=== PATIENT | female | born 1995 | race Caucasian/White ===

== ENCOUNTER → 2017-11-09 | Outpatient (CLI) | payer OTHER ==
--- NOTE | 2017-11-09 14:46 | RADIOLOGY IMAGING REPORT ---
[place] [facility] [place]IENT NAME: Prudence Logan : 1995 MR: [id number] V: [id number] EXAM DATE: ORDERING PHYSICIAN: ABHILASH DODD TECHNOLOGIST: [place] [facility] [place]: Prudence Logan : 1995 Visit/Account:[id number] Date of Sevice: 11/09/2017 Abdominal ultrasound Indication: Right upper quadrant pain Comparison: None Findings: Liver is normal in size, contour, and echotexture and measures 11.6 cm in length. There is normal hep atopedal portal venous flow. Gallbladder wall thickness is 2.0 mm with no evidence of shadowing stone or sludge within the gallbla dder lumen. Negative sonographic Andrade's sign reported by the technologist. Common duct measures 2.0 mm in maximum diameter with no evidence of shadowing stone. The head and proximal body of the pancreas is unremarkable. The distal body and tail is obscured by o verlying bowel gas. Abdominal aorta and IVC are patent and unremarkable. Right kidney measures 11.0 x 4.7 x 6.4 cm and has a normal sonographic appearance. IMPRESSION: 1. Unremarkable right upper quadrant ultrasound Report Dictated By: Jake Morillo MD at 11/09/2017 2:40 PM Report E-Signed By: Jake Morillo MD at 11/09/2017 2:41 PM WSN:[email or web address]
== END ==
LOC: US 13:31
PROVIDERS: ATTEND Obstetrics & Gynecology
DX: R10.11 Right upper quadrant pain (principal)
CPT/HCPCS: 76705

== ENCOUNTER 2018-04-12 19:05 | Inpatient (IN) | payer OTHER ==
[~2018-04-12] VITALS: Ht 165.1 cm; Wt 85.7 kg
[2018-04-12] MEDS ORDERED: OXYTOCIN 30 UNIT/D5LR 500 ML 500 ML IV PRN (19:44)
[2018-04-12] MEDS ORDERED: FAMOTIDINE(*) 20MG/50ML PREMIX 50 ML IVPB PRN (19:44)
[2018-04-12] MEDS ORDERED: TERBUTALINE SULF 1 MG/ML VIAL SUBQ PRN (19:45)
[2018-04-12] MEDS ORDERED: ZOLPIDEM TARTRATE 5 MG TAB PO PRN (19:45)
[2018-04-12] MEDS ORDERED: DINOPROSTONE 10 MG INSERT PV ONE (19:45)
[2018-04-12] MEDS ORDERED: METOCLOPRAMIDE 10 MG/2 ML SDV IVP PRN (19:45)
[2018-04-12] MEDS ORDERED: LIDOCAINE 1% LOCAL 300 MG/30ML INJ PRN (19:45)
[2018-04-12] MEDS ORDERED: fentaNYL CITR 100 MCG/2 ML AMP IVP PRN (19:45)
[2018-04-12] MEDS ORDERED: cefOXitin/DEX(*) 2GM/50ML PREM 50 ML IVPB PRN (19:45)
[2018-04-12] MEDS ORDERED: MISOPROSTOL 25 MCG CAP PV PRN (19:45)
[2018-04-12 19:55] LABS: PLATELET COUNT, AUTOMATED 211 K/uL (150-450)
[2018-04-12] MEDS ORDERED: hydrALAZINE HCL 20 MG/ML VIAL IVP PRN (20:10)
[2018-04-13] MEDS ORDERED: PENICILLIN G 5 MILLUN/100 ML 100 ML IVPB ONE
[2018-04-13] MEDS: LR(*) 1000 ML BAG 1,000 ML IV PRN ×2 (00:19→06:16)
[2018-04-13] MEDS ORDERED: FLUSH 10 ML SYR IV SCH (01:00)
[2018-04-13] MEDS: ACETAMINOPHEN 500 MG TAB PO PRN ×2 (01:12→09:22)
[2018-04-13] MEDS: fentaNYL CITR 100 MCG/2 ML AMP IVP PRN ×2 (03:36→05:20)
[2018-04-13] MEDS: PENICILLIN G 2.5 MILLUN/100 ML 100 ML IVPB SCH ×4 (03:50→16:05)
[2018-04-13] MEDS: ONDANSETRON 4 MG/2 ML VIAL IVP PRN ×2 (04:36→11:17)
[2018-04-13 04:43] VITALS: BP 157/106; Ht 165.1 cm; Wt 85.7 kg
[2018-04-13] MEDS ORDERED: BUPIVACAINE 0.25% MPF INJ EPI PRN (05:15)
[2018-04-13] MEDS ORDERED: fentaNYL CITR 100 MCG/2 ML AMP IT PRN (05:15)
[2018-04-13] MEDS ORDERED: LIDO/EPI 2% MPF 1:200,000 20ML EPI PRN (05:15)
[2018-04-13] MEDS ORDERED: LIDOCAINE/PF 2% 200MG/10ML AMP 200 MG/10 ML AMPUL EPI PRN (05:15)
[2018-04-13] MEDS ORDERED: EPIDURAL KEYS XX PRN (05:15)
[2018-04-13] MEDS ORDERED: ePHEDrine 25 MG/5 ML DISP.SYR IVP PRN (05:15)
[2018-04-13] MEDS ORDERED: FENTANYL/ROPIVACAINE 100 ML BAG EPI PRN (05:15)
[2018-04-13] MEDS ORDERED: BUPIVACAINE 0.5% INJ 30ML VIAL EPI PRN (05:15)
--- NOTE | 2018-04-13 06:25 | Procedure Note ---
Anesthetic Placement Note Anesthesia Plan: LEB Permit for Anesthesia Signed: Yes Anesthesia Technique: Patient Sitting Anesthesia Prep: Chlorhexidine Interspace: L 2-3 Local Anesthetic: 1% Lidocaine Amount Local - cc's: 3 Anesthesia Needle: 17g Touhy/Schliff Anesthesia Attempts: 1 Loss of Resistance: Air Depth of JIMI (cm): 4 Catheter Type: Mayberry - Spring Wound Epidural Dressing: Tegaderm Anesthesia Tray: Lot Number ([id number]), Expiration Date (2019-05-17), Reference Number ([id number]) Comment: epidural placed without difficulty. pain score 0. Anesthesia Medications: Epidural Test Dose: 1.5 Lido/Epi (1:200,000), Dose - mL (5), Time (0554), Negative Epidural Loading Dose: 0.2% Ropivicaine, With Fentanyl 2mcg/ml, Dose - ml (11) , Time (0601) Epidural Infusion: 0.2% Ropivicaine, With Fentanyl 2mcg/ml, Start Time: (0609) Epidural Pump Setting: Bolus Dose - mL (5), Lockout - Minutes (10), Maintenance Rate - mL/hr (10), Maximum per Hour - mL (20) Complications: None MARI KEE CRNA Apr 13, 2018 06:25
[2018-04-13] MEDS ORDERED: CALCIUM CARBONATE 500 MG CHEW PO PRN (07:10)
--- NOTE | 2018-04-13 07:27 | History & Physical ---
History of Present Illness Age of Patient: 22 : 1 Para or TPAL: 0000 EDC per LMP: Apr 23, 2018 Estimated Gestational Age: 38.4 Chief Complaint hypertension History of Present Illness The patient is a 22 year old 1 para 0 admitted at 38 4/7 weeks estimated gestational age with an estimated date of delivery 04/23/18 . Patient is admitted with complaint of hypertension. No vaginal bleeding. Good movement and occasional contractions. She was evaluated for active labor. She had an uncomplicated course prior to yesterday with increase in bp. Her record was reviewed. History Allergies: Coded Allergies: tetracycline (Verified Allergy, Mild, hives, 04/12/18) Exam General Exam Vital Signs Vital Signs Date Time Temp Pulse Resp B/P (MAP) Pulse Ox O2 Delivery O2 Flow Rate FiO2 04/13/18 04:43 99.4 105 16 157/106 (123) Room Air Cardiovascular: Regular Rate and Rhythm Respiratory: Clear to Auscultation Abdomen: Gravid - Non-Tender Extremities: No Edema Cervical Dialation: 3 (RN) Presentation: Vertex Uterine Contractions(Q min): 4 Uterine Contraction Strength: Moderate Fetus Heart Tones: 130 Heart Tone Variabilty: Moderate FHT Accelerations: 15X15 FHT Category: I Medical Decision Making Data Points Result Diagram: 04/12/18193704/12/181937 Assessment and Plan Problems: (1) Hypertension during Assessment & Plan: CERVADIL PLACED WILL MONITOR FOR CHANGE Problem Qualifiers (1) Hypertension during : Hypertension in type: gestational hypertension without significant proteinuria Trimester: third trimester Qualified Codes: O13.3 - Gestational [-induced] hypertension without significant proteinuria, third trimester KULDIP CUMMINGS MD Apr 13, 2018 07:27
[2018-04-13] MEDS ORDERED: DLR(*) 1000 ML BAG 1,000 ML IV SCH (08:31)
[2018-04-13] MEDS ORDERED: OXYTOCIN 30 UNIT/D5LR 500 ML 500 ML IV PRN (08:31)
--- NOTE | 2018-04-13 11:14 | Labor Progress Note ---
Labor Subjective Progress Notes Subjective RESTING COMFORTABLY Feeling Movement?: Yes Labor Pain: Mild Labor Objective Vital Signs Vital Signs Date Time Temp Pulse Resp B/P (MAP) Pulse Ox O2 Delivery O2 Flow Rate FiO2 04/13/18 04:43 99.4 105 16 157/106 (123) Room Air Cervical Dialation: 4 Cervical Effacement (%): 90 Cervical Consistency: Soft Cervical Position: Mid Station: -1 Presentation: Vertex Uterine Contractions(Q min): 4 Uterine Contraction Strength: Moderate Fetus Heart Tones: 130 Heart Tone Variabilty: Moderate FHT Accelerations: 15X15 FHT Category: I Other Result Diagram: 04/12/18193704/12/181937 Assessment and Plan Problems: (1) Hypertension during Assessment & Plan: AROM CLEAR FLUID, MINIMAL CHANGE WILL MONITOR FOR CERVICAL CHANGE, BP STABLE Problem Qualifiers (1) Hypertension during : Hypertension in type: gestational hypertension without significant proteinuria Trimester: third trimester Qualified Codes: O13.3 - Gestational [-induced] hypertension without significant proteinuria, third trimester KULDIP CUMMINGS MD Apr 13, 2018 11:14
--- NOTE | 2018-04-13 14:18 | Anesthesia Progress Note ---
Progress/Maintenance Anesthesia Note Date: Apr 13, 2018 Anesthesia Note Time: 14:15 Pain Intensity: 1 Pump: On Pump Rate (ML/HR): 10 Dilatation: 7 Position: Right, Tilt Anesthesia Treatment: 2nd epidural bag MARI Love CRNA Apr 13, 2018 14:18
--- NOTE | 2018-04-13 16:59 | Labor Progress Note ---
Labor Subjective Progress Notes Subjective PATIENT PUSHING, FEELING PRESSURE Labor Objective Vital Signs Vital Signs Date Time Temp Pulse Resp B/P (MAP) Pulse Ox O2 Delivery O2 Flow Rate FiO2 04/13/18 04:43 99.4 105 16 157/106 (123) Room Air Cervical Dialation: 10 Station: +3 Presentation: Vertex Uterine Contractions(Q min): 3 Fetus Heart Tones: 130 Heart Tone Variabilty: Moderate FHT Accelerations: 15X15 FHT Decelerations: Variable FHT Category: II Other Result Diagram: 04/12/18193704/12/181937 Assessment and Plan Problems: (1) Hypertension during (2) Active labor at term Assessment & Plan: COMPLETE PUSHING, WILL CONTINUE ANTICIPATE VAGINAL DELIVERY Problem Qualifiers (1) Hypertension during : Hypertension in type: gestational hypertension without significant proteinuria Trimester: third trimester Qualified Codes: O13.3 - Gestational [-induced] hypertension without significant proteinuria, third trimester KULDIP CUMMINGS MD Apr 13, 2018 16:59
[2018-04-13] MEDS ORDERED: MAGNESIUM HYDROXIDE* 30ML UDCP PO PRN (17:40)
[2018-04-13] MEDS ORDERED: BENZOCAINE 20% 60 ML BTL TP PRN (17:40)
[2018-04-13] MEDS ORDERED: LANOLIN OINT 7 GM TUBE TP PRN (17:40)
[2018-04-13] MEDS ORDERED: ACETAMINOPHEN 325 MG TAB PO PRN (17:40)
[2018-04-13] MEDS ORDERED: GLYCERIN/WITCH HAZEL LEAF 1 PK TP PRN (17:40)
[2018-04-13] MEDS ORDERED: HYDROCORTISONE 2.5% CR 30GM TB PR PRN (17:40)
[2018-04-13] MEDS ORDERED: INFLUENZA VIRUS VAC 0.5 ML SYR IM ONLY ONE (17:40)
--- NOTE | 2018-04-13 17:47 | OB Delivery Note ---
Delivery Note Vaginal Delivery Type: Spont. Vaginal Delivery Delivery Date: Apr 13, 2018 Delivery Time: 17:08 Estimated Gestational Age(wks): 38.4 Delivery Anesthesia: Epidural, Local Sex: Male Weight (gms): 2710 Apgars: 1 Minute (8), 5 Minute (9) Repair Needed: Laceration, Vaginal, 1st Degree Estimated Blood Loss: 400 Notes: IOL FOR GESTATIONAL HYPERTENSION. CERVADIL PLACED CONTRACTED THROUGHOUT NIGHT THEN AUGMENTED WITH PITOCIN TODAY AFTER EPIDURAL. PROGRESSED THROUGH LABOR AND PUSHED EFFECTIVELY. DELIVERED WITH SPONTANEOUS CRY AND MOVEMENT OF ALL 4 EXTREMITIES. LOCAL INFILTRATED IN VAGINAL WOUND, SUPERFICIAL TEARS REPAIRED WITH 3-0 VICRYL. SLIGHT HEMATOMA STARTED TO DEVELOP ON LEFT LOWER LABIA BUT ABATED WITH FIGURE OF 8 SUTURES. NO EXPANSION WHEN FINISHED TOLERATED WELL Wheel Roller in Attendence: No Copies to: KULDIP CUMMINGS MD, JOHN MD Apr 13, 2018 17:47
[2018-04-13] MEDS ORDERED: LIDOCAINE 1% LOCAL 300 MG/30ML 30 ML ONE (18:17)
[2018-04-13] MEDS: IBUPROFEN 800 MG TAB PO SCH (18:41)
[2018-04-13 19:10] VITALS: BP 138/84
[2018-04-13] MEDS ORDERED: PENICILLIN G 2.5 MILLUN/100 ML 100 ML IVPB SCH (20:00)
[2018-04-13] MEDS: DOCUSATE CALCIUM 240 MG CAP PO SCH (22:03)
[2018-04-13 22:34] VITALS: BP 140/82
[2018-04-13 23:52] VITALS: BP 123/83
[2018-04-14] MEDS: HYDROmorphone HCL 2 MG TAB PO PRN ×6 (00:51→22:49)
[2018-04-14] MEDS: IBUPROFEN 800 MG TAB PO SCH ×3 (02:38→18:21)
[2018-04-14 03:28] VITALS: BP 135/82
[2018-04-14 08:40] VITALS: BP 123/77
--- NOTE | 2018-04-14 08:40 | OB/GYN Progress Note ---
OB Subjective Progress Notes Subjective Doing well. Little pain and bleeding light. Ambulating well and voiding without difficulty. 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
--- NOTE | 2018-04-14 09:37 | Anesthesia Post Eval Note ---
Anesthesia Post Eval Note Pt able to participate in Eval: Yes Cardiovascular Status: Satisfactory Respiratory Status: Satisfactory Pain Managment: Satisfactory PO Nausea/Vomiting: Satisfactory Temperature Management: Satisfactory Mental Status: Satisfactory Post-Op Hydration Status: Satisfactory Anesthesia Type: LEB Anesthesia Tolerance: No problems or complications noted. MARI KEE CRNA Apr 14, 2018 09:37
[2018-04-14] MEDS: MULTIVITAMINS (PRENATAL) TAB PO SCH (09:52)
[2018-04-14] MEDS: DOCUSATE CALCIUM 240 MG CAP PO SCH ×2 (09:52→22:48)
[2018-04-14 13:23] VITALS: BP 136/81
[2018-04-14 17:41] VITALS: BP_SYST 132; BP_SYST 147; BP_DIAS 89; BP_DIAS 95
[2018-04-14 20:00] VITALS: BP 138/86
[2018-04-15 00:10] VITALS: BP 110/63
[2018-04-15] MEDS: IBUPROFEN 800 MG TAB PO SCH ×2 (01:34→09:37)
[2018-04-15] MEDS: HYDROmorphone HCL 2 MG TAB PO PRN ×2 (02:44→07:02)
[2018-04-15 02:56] VITALS: BP 142/89
[2018-04-15 05:30] VITALS: BP 130/89
[2018-04-15 06:00] VITALS: BP 130/89
[2018-04-15] MEDS ORDERED: DIPHTH/TETANUS/ACEL. PERTUSSIS IM ONLY ONE (09:00)
[2018-04-15] MEDS ORDERED: MEASLES,MUMP,RUBELLA VAC 0.5ML SUBQ ONE (09:00)
[2018-04-15] MEDS: DOCUSATE CALCIUM 240 MG CAP PO SCH (09:37)
[2018-04-15] MEDS: MULTIVITAMINS (PRENATAL) TAB PO SCH (09:37)
--- NOTE | 2018-04-15 09:48 | OB/GYN Progress Note ---
OB Subjective Progress Notes Subjective Doing well. Pain controlled and ambulating well. Voiding without difficulty. Ready to go home. GI: NEG Nausea : Voiding Well Pain: Mild OB Objective Physical Exam Vital Signs Date Time Temp Pulse Resp B/P (MAP) Pulse Ox O2 Delivery O2 Flow Rate FiO2 04/15/18 02:56 98.4 76 14 142/89 (106) 92 Room Air General Appearance: Alert/Awake/No Acute Distress Cardiovascular: Normal Rhythm & Peripheral Pulses, Regular Rate and Rhythm Respiratory: No Respiratory Distress, Clear to Auscultation Abdomen: Soft, Non-Tender, Non-Distended, Fundus Firm, Non-Tender Extremities: No Edema Integumentary: Skin Intact without Lesions or Rash Psychological: Alert & Oriented X3, Appropriate Mood & Affect Result Diagram: 04/14/18 0645 04/12/18 1938 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
[2018-04-15] MEDS ORDERED: IBUP800T37 PO ×2 (09:49→12:21)
[2018-04-15] MEDS ORDERED: HYDR2TAB4 PO ×2 (09:49→12:21)
--- NOTE | 2018-04-15 09:51 | OB/GYN Discharge Summary ---
Discharge Summary Reason for Hosp/Final Diag: (1) Hypertension during (2) Active labor at term (3) care and examination immediately after delivery [place] Vital Signs Vital Signs Date Time Temp Pulse Resp B/P (MAP) Pulse Ox O2 Delivery O2 Flow Rate FiO2 04/15/18 02:56 98.4 76 14 142/89 (106) 92 Room Air Weight (Pounds): 189 Result Diagram: 04/14/18 0645 04/12/18 1938 Condition: Improved Discharge: Home, Self [facility] Meds Active Scripts Ibuprofen (IBUPROFEN) 800 Mg Tablet, 800 MG PO Q8H Y for PAIN, #30 TAB 0 Refills Prov:JULIO CÉSAR ECHEVERRIA MD 04/15/18 Hydromorphone Hcl (HYDROMORPHONE HCL) 2 Mg Tablet, 2-4 MG PO Q4H Y for PAIN, # 10 TAB 0 Refills Prov:JULIO CÉSAR ECHEVERRIA MD 04/15/18 Follow up Referrals: [facility] [employer] - In 6 Weeks @ [facility] with Julio César Echeverria Md Follow up with: Dr. Echeverria [phone] Follow up in: 6 wks PP or PO Discharge Diet: As Tolerates Discharge Activity: As Tolerates, No Heavy Lifting x 6 wks, No Heavy Lifting > 10lb, Pelvic Rest Copies to: JULIO CÉSAR ECHEVERRIA MD Problem Qualifiers (1) Hypertension during : Hypertension in type: gestational hypertension without significant proteinuria Trimester: third trimester Qualified Codes: O13.3 - Gestational [-induced] hypertension without significant proteinuria, third trimester JULIO CÉSAR ECHEVERRIA MD Apr 15, 2018 09:51
== END 2018-04-15 12:30 | disposition home or self-care (01) | DRG 775 ==
LOC: OB 19:05
PROVIDERS: ADMIT Obstetrics & Gynecology; ATTEND Obstetrics & Gynecology
PROC: 3E0P7VZ Introduction of Hormone into Female Reproductive, Via Natural or Artificial Opening (ICD-10-PCS; 2018-04-12)
PROC: 10E0XZZ Delivery of Products of Conception, External Approach (ICD-10-PCS; principal; 2018-04-13)
PROC: 0HQ9XZZ Repair Perineum Skin, External Approach (ICD-10-PCS; 2018-04-13)
PROC: 10907ZC Drainage of Amniotic Fluid, Therapeutic from Products of Conception, Via Natural or Artificial Opening (ICD-10-PCS; 2018-04-13)
DX: O13.4 Gestational [pregnancy-induced] hypertension without significant proteinuria, complicating childbirth (principal); O70.0 First degree perineal laceration during delivery; Z3A.38 38 weeks gestation of pregnancy; Z37.0 Single live birth
CPT/HCPCS: 36415; 81001; 82040; 82247; 82310; 82374; 82435; 82565; 82570; 82947; 83615; 84075; 84132; 84155; 84156; 84295; 84450; 84460; 84520; 84550; 85025; 85027; 86850; 86900; 86901; J2001; J2405; J2540; J2590; J3010; J7120